=== PATIENT | male | born 1965 | race Caucasian/White ===

== ENCOUNTER 2018-03-27 18:43 | Emergency (ER) | payer OTHER ==
[~2018-03-27] VITALS: Ht 180.3 cm; Wt 95.1 kg
[2018-03-27] MEDS ORDERED: ONDANSETRON INJ 2 MG/ML 2 ML VIAL IV STA (18:50)
[2018-03-27] MEDS ORDERED: SODIUM CHLORIDE 0.9% 1000ML 2,000 ML IV STA (18:50)
[2018-03-27] MEDS ORDERED: CIPROFLOXACIN 400MG / 200ML D5W IV STA (18:51)
[2018-03-27 18:55] VITALS: TEMP 37.7; Ht 180.3 cm; Wt 95.1 kg
[2018-03-27] MEDS ORDERED: OPTIRAY 320 IV PRN (19:00)
[2018-03-27 19:07] LABS: BASO % 0.3 %; BASO ABS # 0.04 K/uL (0-0.2); EOS % 2.4 %; EOS ABS # 0.29 K/uL (0-0.5); HEMATOCRIT 47.5 % (42-52); HEMOGLOBIN 16.3 g/dL (14.0-18.0); IG# 0.04 K/uL (0.00-0.02); LYMPH % 14.3 %; MEAN CELL VOLUME 90.6 fL (80-100); MEAN CORPUSCULAR HEMOGLOBIN 31.1 pg (25-34); MEAN CORPUSCULAR HGB CONC 34.3 g/dl (32-36); MEAN PLATELET VOLUME 9.1 fL (7.4-10.4); MONO % 5.6 %; MONO ABS # 0.67 K/uL (0.11-0.59); NEUT % 77.1 %; NEUT ABS # 9.12 K/uL (1.4-6.5); PLATELET COUNT 302 K/uL (130-400); RED CELL DISTRIBUTION WIDTH CV 13.6 % (11.5-14.5); RED CELL DISTRIBUTION WIDTH SD 45.2 fL (36.4-46.3); WHITE BLOOD COUNT 11.86 K/uL (4.8-10.8)
[2018-03-27 19:26] LABS: ALBUMIN 3.7 gm/dl (3.4-5.0); ALKALINE PHOSPHATASE 103 U/L (45-117); ALT/SGPT 99 U/L (12-78); AST/SGOT 42 U/L (15-37); BLOOD UREA NITROGEN 9 mg/dl (7-18); CALCIUM 9.6 mg/dl (8.5-10.1); CARBON DIOXIDE 28 mmol/L (21-32); CREATININE 1.03 mg/dl (0.60-1.40); GLUCOSE 81 mg/dl (70-99); LIPASE 76 U/L (73-393); POTASSIUM 3.6 mmol/L (3.5-5.1); SODIUM 137 mmol/L (136-145); TOTAL PROTEIN 8.1 gm/dl (6.4-8.2)
[2018-03-27] MEDS ORDERED: ALBINS/ NEB (19:49)
[2018-03-27] MEDS ORDERED: DULO60CA44 PO (19:49)
[2018-03-27] MEDS ORDERED: PANT40TA PO (19:49)
[2018-03-27] MEDS ORDERED: VNTHFA/IN INH (19:49)
[2018-03-27] MEDS ORDERED: ROPI2TAB6 PO (19:49)
[2018-03-27] MEDS ORDERED: ADVIN10/60 INH (19:49)
[2018-03-27] MEDS ORDERED: LEVO175T3 PO (19:49)
[2018-03-27] MEDS ORDERED: AMPH10TA2 PO (19:49)
[2018-03-27] MEDS ORDERED: LISI-461 PO (19:49)
--- NOTE | 2018-03-27 20:21 | DIAGNOSTIC IMAGING REPORT ---
ABDOMEN AND PELVIS CT WITH IV CONTRAST CT DOSE: 840.80 mGycm HISTORY: Severe generalized abdominal pain. TECHNIQUE: Multiaxial CT images of the abdomen and pelvis were performed following the use of intravenous contrast. A dose lowering technique was utilized adhering to the principles of ALARA. COMPARISON STUDY: None. FINDINGS: The lung bases are clear. No pneumoperitoneum. No pneumatosis. No suspicious lytic or blastic osseous lesions. Small fat-containing bilateral inguinal hernias. Cholecystectomy. No hepatic or splenic masses. The pancreas, adrenal glands, and right kidney are unremarkable. There are few subcentimeter hypodense lesions within the left kidney which measure up to 5 mm. These are technically too small to characterize. No retroperitoneal lymphadenopathy. There is a left circumaortic renal vein. Normal bladder. Mild thickening within the proximal sigmoid colon with an inflamed diverticulum and mild pericolonic fat stranding. This is consistent with acute diverticulitis. The inflamed diverticulum is best seen on image 304. There is also moderate bowel wall thickening within the proximal descending colon with an inflamed diverticulum and moderate pericolonic fat stranding/fluid. This is consistent with a second site of acute diverticulitis. No perforation or abscess. No bowel obstruction. Normal appendix. IMPRESSION: 1. There are 2 separate areas of acute diverticulitis within the proximal descending colon and proximal sigmoid colon. No perforation or abscess. Follow-up nonemergent colonoscopy is recommended once the diverticulitis has resolved to exclude the less likely possibility of an underlying lesion. 2. Normal appendix. 3. Cholecystectomy. 4. Additional findings as described above. Electronically signed by: Horacio Godinez M.D. 03/27/2018 8:20 PM Dictated Date/Time: 03/27/2018 8:14 PM
[2018-03-27] MEDS ORDERED: METR-162 PO (20:44)
[2018-03-27] MEDS ORDERED: CIPR-255 PO (20:44)
[2018-03-27] MEDS ORDERED: METRONIDAZOLE 250 MG TAB PO STA (20:46)
--- NOTE | 2018-03-27 21:00 | EMERGENCY ROOM VISIT NOTE ---
History Report prepared by Danay: Bj Berrios Under the Supervision of: Dr. He Mendoza D.O. First contact with patient: 18:45 Chief Complaint: ABDOMINAL PAIN Stated Complaint: AB PAIN History of Present Illness The patient is a 53 year old male who presents to the Emergency Room with complaints of constant left lower quadrant abdominal pain that began at 0700. He rates his pain as a 5/10 in severity. The patient states that pain is worsened with bending. He reports he has also been experiencing nausea and bilateral lower back pain. The patient denies any vomiting. He reports he was diagnosed with diverticulitis a month ago. The patient states his pain is as severe as when he was diagnosed. He reports he was supposed to have a follow up colonoscopy in a couple of weeks. No other exacerbating or remitting factors. He denies any chest pain or shortness of breath. No fevers above 100.4. No urinary complaints. Source of History: patient Onset: 0700 Position: abdomen (LLQ) Symptom Intensity: 5/10 Timing: constant Modifying Factors (Worsening): other (bending) Associated Symptoms: + nausea, + back pain, No vomiting Review of Systems See HPI for pertinent positives & negatives. A total of 10 systems reviewed and were otherwise negative. Past Medical & Surgical Medical Problems: (1) Diverticulitis (2) HTN (hypertension) Family History Patient reports no known family medical history. Social History Marital Status: Housing Status: lives with significant other Occupation Status: employed Current/Historical Medications Scheduled Ciprofloxacin Hcl (Cipro), 500 MG PO BID Duloxetine Hcl (Cymbalta), 60 MG PO DAILY Fluticasone Prop/Salmeterol (Advair Diskus 100/50 60 Dose), 1 PUFF INH BID Levothyroxine Sodium (Levothyroxine Sodium), 175 MCG PO DAILY Lisinopril (Zestril), 10 MG PO DAILY Metronidazole (Flagyl), 500 MG PO BID Pantoprazole (Protonix), 40 MG PO DAILY Ropinirole (Requip), 8 MG PO HS Scheduled PRN Albuterol Hfa (Ventolin Hfa), 2 PUFFS INH Q4-6HRS PRN for Shortness of Breath Albuterol Sulf (Proventil 0.083% 2.5MG/3ML), 2.5 MG NEB Q4H PRN for SOB/Wheezing Amphetamine-Dextroamphetamine 10MG (Adderall 10MG), 10 MG PO BID PRN for Focus Allergies Coded Allergies: Penicillins (Verified Allergy, Unknown, Unknown, 03/27/18) Physical Exam Vital Signs Date Time Temp Pulse Resp B/P (MAP) Pulse Ox O2 Delivery O2 Flow Rate FiO2 03/27/18 18:55 37.7 97 19 177/99 94 Room Air 03/27/18 18:50 103 Physical Exam GENERAL: Sitting up in bed, disheveled, in mild distress. EYE EXAM: normal conjunctiva. OROPHARYNX: no exudate, no erythema, lips, buccal mucosa, and tongue normal and mucous membranes are moist NECK: supple, no nuchal rigidity, no adenopathy, non-tender LUNGS: Clear to auscultation. Normal chest wall mechanics HEART: no murmurs, S1 normal and S2 normal ABDOMEN: abdomen soft, acute tenderness in left lower quadrant, normo-active bowel sounds, no masses, no rebound or guarding. BACK: Back is symmetrical on inspection and there is no deformity, no midline tenderness, no CVA tenderness. SKIN: no rashes and no bruising UPPER EXTREMITIES: upper extremities are grossly normal. LOWER EXTREMITIES: No pitting edema. NEURO EXAM: Normal sensorium, cranial nerves II-XII grossly intact, normal speech, no gross weakness of arms, no gross weakness of legs. Medical Decision & Procedures ER Provider Diagnostic Interpretation: Radiology results as stated below per my review and the radiologist's interpretation: ABDOMEN AND PELVIS CT WITH IV CONTRAST CT DOSE: 840.80 mGycm HISTORY: Severe generalized abdominal pain. TECHNIQUE: Multiaxial CT images of the abdomen and pelvis were performed following the use of intravenous contrast. A dose lowering technique was utilized adhering to the principles of ALARA. COMPARISON STUDY: None. FINDINGS: The lung bases are clear. No pneumoperitoneum. No pneumatosis. No suspicious lytic or blastic osseous lesions. Small fat-containing bilateral inguinal hernias. Cholecystectomy. No hepatic or splenic masses. The pancreas, adrenal glands, and right kidney are unremarkable. There are few subcentimeter hypodense lesions within the left kidney which measure up to 5 mm. These are technically too small to characterize. No retroperitoneal lymphadenopathy. There is a left circumaortic renal vein. Normal bladder. Mild thickening within the proximal sigmoid colon with an inflamed diverticulum and mild pericolonic fat stranding. This is consistent with acute diverticulitis. The inflamed diverticulum is best seen on image 304. There is also moderate bowel wall thickening within the proximal descending colon with an inflamed diverticulum and moderate pericolonic fat stranding/fluid. This is consistent with a second site of acute diverticulitis. No perforation or abscess. No bowel obstruction. Normal appendix. IMPRESSION: 1. There are 2 separate areas of acute diverticulitis within the proximal descending colon and proximal sigmoid colon. No perforation or abscess. Follow-up nonemergent colonoscopy is recommended once the diverticulitis has resolved to exclude the less likely possibility of an underlying lesion. 2. Normal appendix. 3. Cholecystectomy. 4. Additional findings as described above. Electronically signed by: Horacio Godinez M.D. 03/27/2018 8:20 PM Dictated Date/Time: 03/27/2018 8:14 PM Laboratory Results 03/27/18 18:50 Red Blood Count 5.24, Mean Corpuscular Volume 90.6, Mean Corpuscular Hemoglobin 31.1, Mean Corpuscular Hemoglobin Concent 34.3, Mean Platelet Volume 9.1, Neutrophils (%) (Auto) 77.1, Lymphocytes (%) (Auto) 14.3, Monocytes (%) (Auto) 5.6, Eosinophils (%) (Auto) 2.4, Basophils (%) (Auto) 0.3, Neutrophils # (Auto) 9.12, Lymphocytes # (Auto) 1.70, Monocytes # (Auto) 0.67, Eosinophils # (Auto) 0.29, Basophils # (Auto) 0.04 03/27/18 18:50 Test 03/27/18 18:50 03/27/18 19:23 White Blood Count 11.86 K/uL (4.8-10.8) Red Blood Count 5.24 M/uL (4.7-6.1) Hemoglobin 16.3 g/dL (14.0-18.0) Hematocrit 47.5 % (42-52) Mean Corpuscular Volume 90.6 fL (80-100) Mean Corpuscular Hemoglobin 31.1 pg (25-34) Mean Corpuscular Hemoglobin Concent 34.3 g/dl (32-36) Platelet Count 302 K/uL (130-400) Mean Platelet Volume 9.1 fL (7.4-10.4) Neutrophils (%) (Auto) 77.1 % Lymphocytes (%) (Auto) 14.3 % Monocytes (%) (Auto) 5.6 % Eosinophils (%) (Auto) 2.4 % Basophils (%) (Auto) 0.3 % Neutrophils # (Auto) 9.12 K/uL (1.4-6.5) Lymphocytes # (Auto) 1.70 K/uL (1.2-3.4) Monocytes # (Auto) 0.67 K/uL (0.11-0.59) Eosinophils # (Auto) 0.29 K/uL (0-0.5) Basophils # (Auto) 0.04 K/uL (0-0.2) RDW Standard Deviation 45.2 fL (36.4-46.3) RDW Coefficient of Variation 13.6 % (11.5-14.5) Immature Granulocyte % (Auto) 0.3 % Immature Granulocyte # (Auto) 0.04 K/uL (0.00-0.02) Anion Gap 7.0 mmol/L (3-11) Estimated GFR () 94.3 Estimated GFR (Non- 81.4 BUN/Creatinine Ratio 8.9 (10-20) Calcium Level 9.6 mg/dl (8.5-10.1) Total Bilirubin 1.2 mg/dl (0.2-1) Direct Bilirubin 0.3 mg/dl (0-0.2) Aspartate Amino Transf (AST/SGOT) 42 U/L (15-37) Alanine Aminotransferase (ALT/SGPT) 99 U/L (12-78) Alkaline Phosphatase 103 U/L (45-117) Total Protein 8.1 gm/dl (6.4-8.2) Albumin 3.7 gm/dl (3.4-5.0) Lipase 76 U/L (73-393) Urine Color YELLOW Urine Appearance CLEAR (CLEAR) Urine pH 6.5 (4.5-7.5) Urine Specific [place] 1.006 (1.000-1.030) Urine Protein NEG (NEG) Urine Glucose (UA) NEG (NEG) Urine Ketones NEG (NEG) Urine Occult Blood TRACE (NEG) Urine Nitrite NEG (NEG) Urine Bilirubin NEG (NEG) Urine Urobilinogen NEG (NEG) Urine Leukocyte Esterase NEG (NEG) Urine WBC (Auto) 0 /hpf (0-5) Urine RBC (Auto) 0-4 /hpf (0-4) Urine Hyaline Casts (Auto) 0 /lpf (0-5) Urine Epithelial Cells (Auto) 0-5 /lpf (0-5) Urine Bacteria (Auto) NEG (NEG) Laboratory results per my review. Medications Administered Medications (Trade) Dose Ordered Sig/Harry Route Start Time Stop Time Status Last Admin Dose Admin Sodium Chloride 2,000 ml @ 999 mls/hr Q2H1M STAT IV 03/27/18 18:50 03/27/18 20:50 DC 03/27/18 19:17 999 MLS/HR Ondansetron HCl (Zofran Inj) 4 mg NOW STAT IV 03/27/18 18:50 03/27/18 18:51 DC 03/27/18 19:17 4 MG Ciprofloxacin/ Dextrose (Cipro / D5W) 400 mg NOW STAT IV 03/27/18 18:51 03/27/18 18:52 DC 03/27/18 19:17 400 MG ED Course ED COURSE: Vital signs were reviewed and showed hypertension The patients medical record was reviewed The above diagnostic studies were performed and reviewed. ED treatments and interventions as stated above. 5: The patient was evaluated in room C09. A complete history and physical examination was performed. 0: Ordered Zofran Injection 4 mg IV, Sodium Chloride 2000 ml @ 999 mls/hr IV. 1850: Ordered Ciprofloxacin/Dextrose 400 mg IV. 2027: Upon reevaluation, the patient is resting comfortably. I discussed my findings with the patient and he understands and agrees with the treatment plan. He reports he would not like any medication for the pain. Based on the patients age, coexisting illnesses, exam and lab findings the decision to treat as an outpatient was made. The patient remained stable while under my care. The patient appeared well at the time of discharge. 2045: Ordered Flagyl Tab 500 mg PO. Medical Decision Differential diagnoses includes but is not limited to gastritis, peptic ulcer disease, GERD, gallbladder disease, pancreatitis, small bowel obstruction, acute coronary syndrome, pericarditis, ischemic bowel, irritable bowel disease, irritable bowel syndrome, appendicitis, diverticulitis, malignancy, hernia, urinary tract infection, torsion, perforation, trauma, infectious. Patient is a 53-year-old male who presents the ER for left lower quadrant abdominal pain which started at 7 AM this morning. Labs show mild leukocytosis. BMP was unremarkable along with lipase. LFTs were only slightly elevated. Bilirubin was 0.1 elevated[address]A was negative[address] CT of abdomen pelvis shows no obstructive processes in the right upper quadrant and had no tenderness there. Previous cholecystectomy. CT did confirm diverticulitis without perforation. Patient declined any pain meds. He was given IV antibiotics and discharged follow-up with PCP as an outpatient. Discussed with Pt concerning signs and symptoms to watch out for. Pt was instructed to follow up with their PCP and discussed with the patient their option to return to the ED at anytime for persistent or worsening symptoms. The appropriate anticipatory guidance and out-patient management, including indications for return to the emergency department, were explained at length to the patient and understood. Medication Reconcilliation Current Medication List: was personally reviewed by me Blood Pressure Screening Patient's blood pressure: Elevated blood pressure Blood pressure disposition: Elevated BP felt to be situational Impression Primary Impression: Diverticulitis Scribe Attestation The scribe's documentation has been prepared under my direction and personally reviewed by me in its entirety. I confirm that the note above accurately reflects all work, treatment, procedures, and medical decision making performed by me. Departure Information Dispostion Home / Self-Care Prescriptions Metronidazole (FLAGYL) 500 Mg Tab 500 MG PO BID, #20 TAB Prov: He Mendoza, DO 03/27/18 Ciprofloxacin Hcl (CIPRO) 500 Mg Tab 500 MG PO BID, #20 TAB Prov: He Mendoza, DO 03/27/18 Referrals Quinn Mclaughlin M.D. Forms Call Back Authorization, HOME CARE DOCUMENTATION FORM, IMPORTANT VISIT INFORMATION Patient Instructions Diverticulitay Mejia, Dana [facility] Additional Instructions Please follow up with your primary care doctor with in the next 24 hours. Any worsening of your symptoms, please return to the ED immediately. This includes any fevers greater than 100.4, worsening pain, chest pain, shortness breath, persistent nausea, vomiting, unable to eat or drink, or any other concerning signs or symptoms from your standpoint. Please take Tylenol or Motrin as needed for pain. Please take antibiotics as prescribed.
[2018-03-27 21:48] VITALS: BP 158/96; PULSE 106; O2SAT 94
== END 2018-03-27 21:48 | disposition home or self-care (01) ==
LOC: C.EDC 18:46
DX: K57.32 Diverticulitis of large intestine without perforation or abscess without bleeding (principal); I10 Essential (primary) hypertension; Z79.899 Other long term (current) drug therapy; Z88.0 Allergy status to penicillin